=== PATIENT | male | born 1965 | race Hispanic/Latino ===

== ENCOUNTER 2024-09-27 09:15 | Observation (INO) | payer SELFPAY ==
[2024-09-27] MEDS ORDERED: ATOR10TA69 PO ×2 (18:03)
[2024-09-27] MEDS ORDERED: ALLO300T2 PO ×2 (18:03)
[2024-09-27] MEDS ORDERED: LOSA100T59 PO ×2 (18:03)
[2024-09-27] MEDS ORDERED: CETI1TAB PO ×2 (18:03)
[2024-09-27] MEDS ORDERED: AMLO-257 PO ×2 (18:03)
== END 2024-09-27 13:30 | disposition home or self-care (01) ==
LOC: DAHIP 09:15 → EDSTATUS 10:00
PROVIDERS: ADMIT Internal Medicine Nephrology; ATTEND Internal Medicine Nephrology
DX: I12.9 Hypertensive chronic kidney disease with stage 1 through stage 4 chronic kidney disease, or unspecified chronic kidney disease (principal); N18.9 Chronic kidney disease, unspecified; R80.9 Proteinuria, unspecified; E78.5 Hyperlipidemia, unspecified; M10.9 Gout, unspecified; Z79.899 Other long term (current) drug therapy; Z98.890 Other specified postprocedural states
CPT/HCPCS: G0378 ×4; G0379

== ENCOUNTER 2024-09-27 09:41 | Observation (INO) | payer SELFPAY ==
[~2024-09-27] VITALS: Ht 180.3 cm; Wt 99.8 kg
[2024-09-27] VITALS (11 sets, daily range): BP systolic 125–153; BP diastolic 70–96; PULSE 66–95; RESP 18–20; TEMP 98.1–98.2; O2SAT 98
[2024-09-27 10:48] LABS: BASOPHILS # (AUTO) 0.04 K/uL (0.00-0.20); BASOPHILS % (AUTO) 0.7 % (0.0-5.0); EOSINOPHILS % (AUTO) 1.7 % (0.0-8.0); HEMATOCRIT 41.7 % (42-54); IMMATURE GRANULOCYTE ABSOLUTE 0.04 K/uL (0-1); LYMPHOCYTES # (AUTO) 1.3 K/uL (1.0-4.8); LYMPHOCYTES % (AUTO) 22.6 % (21.0-51.0); MEAN CORPUSCULAR HEMOGLOBIN 30.8 pg (27.0-33.0); MEAN CORPUSCULAR HGB CONC 33.6 g/dL (32.0-36.0); MEAN CORPUSCULAR VOLUME 91.9 fL (79-99); MONOCYTES # (AUTO) 0.4 K/uL (0.1-1.0); MONOCYTES % (AUTO) 6.8 % (3.0-13.0); NEUTROPHILS # (AUTO) 3.9 K/uL (1.8-7.7); NEUTROPHILS % (AUTO) 67.5 % (40.0-77.0); PLATELET COUNT (AUTO) 235 K/uL (130-400); RED BLOOD CELL COUNT(AUTO) 4.54 MIL/uL (4.50-6.20); RED CELL DISTRIBUTION WIDTH 12.4 % (11.0-15.5); WHITE BLOOD COUNT (AUTO) 5.7 K/uL (4.8-10.8)
[2024-09-27 11:04] LABS: ALBUMIN 3.6 g/dL (3.5-5.0); BILIRUBIN,TOTAL 0.3 mg/dL (0.2-1.0); CREATININE 1.3 mg/dL (0.5-1.3); POTASSIUM 4.3 mmol/L (3.5-5.1); TOTAL PROTEIN, SERUM 7.7 g/dL (6.0-8.3)
[2024-09-27 11:05] LABS: INR 0.97 (0.85-1.15); PROTHROMBIN TIME 10.3 SEC (9.6-11.6)
[2024-09-27 11:06] LABS: PARTIAL THROMBOPLASTIN TIME 28.8 SEC (26.3-35.5)
--- NOTE | 2024-09-27 11:55 | NUR ---
U/S GD LT RENAL BX RANDOM SITE PROCEDURE PERFORMED BY DR Jose F BOOGIE. PUNCTURE SITE LT LOWER BACK. AND PATIENT TOLERATED PROCEDURE WELL. SPECIMEN X 3 COLLECTED AND SENT TO LAB. END OF PROCEDURE AT 1135. BIOPSY NEEDLE REMOVED AND DRESSING APPLIED. NO BLEEDING NOTED. REPORT GIVEN TO MAURIZIO GALLEGOS AND PATIENT TRANSPORTED TO [facility] VIA BED AT 1155. AAO X3 WITH NO C/O PAIN.
--- NOTE | 2024-09-27 13:16 | HP ---
NEPHROLOGY HISTORY & PHYSICAL NOTE Date/Time Patient Seen: September 27, 2024 HISTORY OF PRESENT ILLNESS: This is a 59-year-old male with a past medical history of hyperlipidemia, hypertension, chronic kidney disease, gout. He presented for renal biopsy. S/p renal biopsy. Has been transferred to the medical floor, in no acute distress Family at the bedside Prognosis remains guarded REVIEW OF SYSTEMS: GENERAL: Negative for any nausea, vomiting, fevers, chills, or weight loss. NEUROLOGIC: Negative for any blurry vision, blind spots, double vision, facial asymmetry, dysphagia, dysarthria, hemiparesis, hemisensory deficits, vertigo, ataxia. HEENT: Negative for any head trauma, neck trauma, neck stiffness, photophobia, phonophobia, sinusitis, rhinitis. CARDIAC: Negative for any chest pain, dyspnea on exertion, paroxysmal nocturnal dyspnea, peripheral edema. PULMONARY: Negative for any shortness of breath, wheezing, COPD, or TB exposure. GASTROINTESTINAL: Negative for any abdominal pain, nausea, vomiting, bright red blood per rectum, melena. GENITOURINARY: Negative for any dysuria, hematuria, incontinence. INTEGUMENTARY: Negative for any rashes, cuts, insect bites. RHEUMATOLOGIC: Negative for any joint pains, photosensitive rashes, history of vasculitis or kidney problems. HEMATOLOGIC: Negative for any abnormal bruising, frequent infections or bleeding. PAST MEDICAL HISTORY: Hyperlipidemia Hypertension Chronic kidney disease PAST SURGICAL HISTORY: Noncontributory PAST SOCIAL HISTORY: Denies use of alcohol, tobacco or illicit drugs FAMILY HISTORY: Noncontributory PHYSICAL EXAM: GENERAL: Alert and oriented x 3. No acute distress. Well-nourished. EYES: EOMI. Anicteric. HENT: Moist mucous membranes. No scleral icterus. No cervical lymphadenopathy. LUNGS: Clear to auscultation bilaterally. No accessory muscle use. CARDIOVASCULAR: Regular rate and rhythm. No murmur. No JVD. ABDOMEN: Soft, non-tender and non-distended. No palpable masses. EXTREMITIES: No edema. Non-tender. SKIN: No rashes or lesions. Warm. NEUROLOGIC: No focal neurological deficits. CN II-XII grossly intact, but not individually tested. PSYCHIATRIC: Cooperative. Appropriate mood and affect. MEDICATIONS: [ ] Vital Signs (last 8hr) Date Time Temp Pulse Resp B/P (MAP) Pulse Ox O2 Delivery O2 Flow Rate FiO2 09/27/24 09:43 97.3 74 20 143/96 99 Room Air DIAGNOSTICS / RADIOLOGY: LABORATORY: [ ] Hematology Labs: Test 09/27/24 10:43 Range/Units White Blood Count 5.7 4.8-10.8 K/uL Red Blood Count 4.54 4.50-6.20 MIL/uL Hemoglobin 14.0 14.0-18.0 g/dL Hematocrit 41.7 L 42-54 % Mean Corpuscular Volume 91.9 79-99 fL Mean Corpuscular Hemoglobin 30.8 27.0-33.0 pg Mean Corpuscular Hemoglobin Concent 33.6 32.0-36.0 g/dL Red Cell Distribution Width 12.4 11.0-15.5 % Platelet Count 235 130-400 K/uL Mean Platelet Volume 9.1 7.5-10.5 fL Immature Granulocyte % (Auto) 0.7 0-1 % Neutrophils (%) (Auto) 67.5 40.0-77.0 % Lymphocytes (%) (Auto) 22.6 21.0-51.0 % Monocytes (%) (Auto) 6.8 3.0-13.0 % Eosinophils (%) (Auto) 1.7 0.0-8.0 % Basophils (%) (Auto) 0.7 0.0-5.0 % Neutrophils # (Auto) 3.9 1.8-7.7 K/uL Lymphocytes # (Auto) 1.3 1.0-4.8 K/uL Monocytes # (Auto) 0.4 0.1-1.0 K/uL Eosinophils # (Auto) 0.10 0.00-0.70 K/uL Basophils # (Auto) 0.04 0.00-0.20 K/uL Absolute Immature Granulocyte (auto 0.04 0-1 K/uL Nucleated Red Blood Cells 0.0 0.0-0.19 % Chemistry Labs: Test 09/27/24 10:43 Range/Units Sodium Level 143 136-145 mmol/L Potassium Level 4.3 3.5-5.1 mmol/L Chloride Level 107 101-111 mmol/L Carbon Dioxide Level 27 21-32 mmol/L Blood Urea Nitrogen 25 H 7-18 mg/dL Creatinine 1.3 0.5-1.3 mg/dL Glomerular Filtration Rate Calc 63 >90 mL/min Random Glucose 109 H 70-105 mg/dL Total Calcium 9.3 8.5-10.1 mg/dL Total Bilirubin 0.3 0.2-1.0 mg/dL Aspartate Amino Transf (AST/SGOT) 15 10-37 U/L Alanine Aminotransferase (ALT/SGPT) 20 12-78 U/L Alkaline Phosphatase 110 50-136 U/L Total Protein 7.7 6.0-8.3 g/dL Albumin 3.6 3.5-5.0 g/dL Coagulation Labs: Test 09/27/24 10:43 Range/Units Prothrombin Time 10.3 9.6-11.6 SEC Prothromb Time International Ratio 0.97 0.85-1.15 Activated Partial Thromboplast Time 28.8 26.3-35.5 SEC ASSESSMENT: Chronic kidney disease with proteinuria and 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 Order to Rack urine, complete bedrest, avoid heavy lifting. Monitor for hematuria Require close monitoring of renal function and electrolytes Order CBC, CMP, and electrolytes in am Renal diabetic diet BiPAP as necessary, for respiratory distress Monitor blood pressure adjust medication doses as needed Avoid hypotensive episodes May use Dilaudid 0.5 mg IV every 6 hours as needed for severe pain Monitor blood sugars Strict intake, output, and daily weight should be monitored Please renally adjust medications Avoid nephrotoxic and nonsteroidal drugs Avoid contrast if possible Will continue to monitor renal function, anemia, electrolytes Treatment plan discussed with patient Questions were answered We have discussed with the family in detail We will continue to monitor the patient closely ATTESTATION BY PHYSICIAN I have seen and examined the patient. I reviewed the documentation, medical decision making, and treatment plan as noted by the mid-level provider above. I agree with the findings and plan of care. HIRAM BOOGIE MD, [facility] September 27, 2024 13:16 HIRAM BOOGIE MD September 27, 2024 21:28
--- NOTE | 2024-09-27 15:48 | NUR ---
[facility] CM MET WITH PT THIS AFTERNOON, INITIAL ASSESSMENT DONE. PATIENT IS INDEPENDENT PRIOR TO ADMISSION, LIVES AT HOME WITH HIS . DENIES ANY EQUIPMENT/SERVICES. FEELS SAFE TO GO BACK HOME, ABLE TO ASSIST WITH TRANSPORTATION AND NEEDS NECESSARY. DC PLAN TO HOME ONCE STABLE. CM TO CONTINUE TO FOLLOW UP. Addendum: 09/27/24 at 1553 by GERARD LEYVA LVN CM Amended: Links added.
[2024-09-27] MEDS ORDERED: AMLO-257 PO (18:03)
[2024-09-27] MEDS ORDERED: ALLO300T2 PO (18:03)
[2024-09-27] MEDS ORDERED: LOSA100T59 PO (18:03)
[2024-09-27] MEDS ORDERED: ATOR10TA69 PO (18:03)
[2024-09-27] MEDS ORDERED: CETI1TAB PO (18:03)
[2024-09-27] MEDS ORDERED: acetaMINOPHEN 325 MG TAB PO PRN (19:30)
[2024-09-28 03:28] VITALS: BP 115/74; PULSE 66; RESP 18; TEMP 98.1
--- NOTE | 2024-09-28 07:47 | PR ---
KIDNEY BIOPSY PROCEDURE NOTE VICE PRESIDENT: Kendra Mulligan M.D. REASON FOR BIOPSY: Suspected glomerulonephritis. The patient has hypertension, proteinuria, and microscopic hematuria. DESCRIPTION OF PROCEDURE: Informed consent was obtained and we had a percutaneous left kidney biopsy done. Ultrasound guidance was used. I personally used the ultrasound machine to localize the kidney and made three passes. Full aseptic precautions were made. There was no immediate complications. Postoperative orders were written. The patient had no questions. The patient was asked to stay in bed and asked to avoid nonsteroidal drug. Complications, none. Blood loss, none. Postoperative images were taken and three passes were made and specimen was handed over to the pathology for further analysis by expert labs and pathologist. Again, the left kidney was used for biopsy. Thank you for this patient. TID: [id number] RECEIPT: [id number]
[2024-09-28 08:00] VITALS: BP 139/79; PULSE 74; RESP 20; TEMP 98; O2SAT 97
[2024-09-28 12:00] VITALS: BP 134/78; PULSE 76; RESP 20; TEMP 98.3
--- NOTE | 2024-09-28 14:30 | NUR ---
DISCHARGE PT sitting in bed w/ eyes open 0 s/s of distress noted family @ bedside, Resp = and unlabored bilat. A&O x4 able to make needs known, discharge instruction given written and verbally, PT verbally acknowledged understanding w/ 0 questions or concerns. PT escorted to POV via wheel chair by this nurse without complications.
--- NOTE | 2024-09-28 15:13 | DS ---
Discharge Summary HOSPITAL COURSE SUMMARY: This is a 59-year-old male with a past medical history of hyperlipidemia, hypertension, chronic kidney disease, gout. He presented for renal biopsy. S/p renal biopsy on 09/27/24. Denies any pain, hematuria, or generalized weakness Hemoglobin has been remained stable Renal function is stable Has been transferred to the medical floor, in no acute distress Family at the bedside Prognosis remains guarded HAND FLESHER(S): PROCEDURES: Left kidney biopsy on PROBLEM(S): Chronic kidney disease with a proteinuria and suspected glomerulonephritis Hypertension Proteinuria Hematuria, microscopic DISCHARGE INSTRUCTIONS: Patient may be discharged Follow up in the renal clinic for results. He was instructed to avoid heavy lifting Avoid NSAIDs, resume other home medications Report to emergency room if hematuria or severe pain develops Treatment plan discussed with the patient and family at the bedside Questions were answered Home Meds Reported Medications Allopurinol (Allopurinol) 300 Mg Tablet, 300 MG PO HS, TAB 09/27/24 Amlodipine Besylate (Amlodipine Besylate) 5 Mg Tablet, 5 MG PO HS, TAB 09/27/24 Atorvastatin Calcium (Atorvastatin Calcium) 10 Mg Tablet, 10 MG PO HS, TAB 09/27/24 Losartan Potassium (Losartan Potassium) 100 Mg Tablet, 100 MG PO HS, TAB 09/27/24 Cetirizine HCl/Pseudoephedrine (Zyrtec-D Tablet) 5 Mg-120 Mg Tab.er.12h, 1 EACH PO HS, TAB 09/27/24 Time spent arranging discharge: 31-60 minutes AKUA JANE September 28, 2024 15:13
== END 2024-09-28 14:40 | disposition home or self-care (01) ==
LOC: EDH 09:41 → 4BH 09:42
PROVIDERS: ADMIT Internal Medicine Nephrology; ATTEND Internal Medicine Nephrology
DX: I12.9 Hypertensive chronic kidney disease with stage 1 through stage 4 chronic kidney disease, or unspecified chronic kidney disease (principal); N18.9 Chronic kidney disease, unspecified; R80.9 Proteinuria, unspecified; E78.5 Hyperlipidemia, unspecified; M10.9 Gout, unspecified; Z79.899 Other long term (current) drug therapy
CPT/HCPCS: 80053; 85025; 85610; 85730; 36415; 50200; 76942; G0378 ×15; G0379